=== PATIENT | female | born 1985 | race American Indian/Alaskan Native ===

== ENCOUNTER 2018-05-16 18:09 | Emergency (ER) | payer SELFPAY ==
[2018-05-16 18:42] VITALS: BP 181/111
--- NOTE | 2018-05-16 20:02 | Cat Scan Report ---
FINAL REPORT EXAM: CT CERVICAL SPINE WO CON HISTORY: head/neck pain TECHNIQUE: Axial helical imaging through the cervical spine with sagittal and coronal reformatted images obtained. Comparison: None FINDINGS: There is mild levocurvature of the cervical spine and mild reversal of the normal lordotic curve of the cervical spine. The vertebral heights and disc spaces are maintained. There is no evidence of bony canal or foraminal stenosis. Visualization detail the contents of the cervical canal is limited by artifact. There is no evidence of fracture or subluxation. The paraspinous soft tissues are unremarkable. There is cervical adenopathy and prominent lymph nodes in the visualized portion of the mediastinum. There is a right central venous catheter that is partially visualized. IMPRESSION: 1. No evidence of fracture or subluxation. 2. Mild levocurvature of the thoracic spine and reversal of the normal lordotic curve of the cervical spine. This may be positional in nature. However, this can also be seen in patients with muscle spasm. 3. Cervical adenopathy and prominent lymph nodes in the visualized portion of the mediastinum. 4. Partial visualization right central venous catheter.
--- NOTE | 2018-05-16 20:27 | Cat Scan Report ---
FINAL REPORT EXAM: CT HEAD/BRAIN WO CON HISTORY: head/neck pain TECHNIQUE: 2.5 millimeter axial images from the skullbase to the vertex. Comparison: None FINDINGS: There is no evidence of an acute intracranial process, intracranial hemorrhage or mass effect. The ventricles are normal size. The visualized portions of the orbits, paranasal and mastoid sinuses are unremarkable. The bony structures are unremarkable in appearance. IMPRESSION: 1. No evidence of an acute intracranial process, intracranial hemorrhage or mass effect. If there is a clinical suspicion of an acute intracranial process and if further imaging is required, MRI may be helpful.
== END 2018-05-16 19:00 | disposition left against medical advice (07) ==
LOC: ED 18:09
DX: R51 Headache (principal); M54.2 Cervicalgia; Z53.21 Procedure and treatment not carried out due to patient leaving prior to being seen by health care provider
CPT/HCPCS: 70450; 72125